=== PATIENT | female | born 1955 | race Caucasian/White ===

== ENCOUNTER 2019-04-01 09:40 | Day surgery (SDC) | payer BC ==
[~2019-04-01] VITALS: Ht 162.6 cm; Wt 63.0 kg
[~2019-04-01 09:40] MED LIST: Cholest Off450 MG PO; ERGO400; FISH OIL 1,0001 EAC1 PO; LISI5 PO; Loratadine10 MG PO; MOVE FREE JOIN1 EACH; Pepto-Bism525 MG/15 PO; Propranolol HCl80 MG PO
== END 2019-04-01 11:53 | disposition home or self-care (01) ==
LOC: ORSCSDS 09:40
PROVIDERS: Internal Medicine Gastroenterology
PROC: 0DJD8ZZ Inspection of Lower Intestinal Tract, Via Natural or Artificial Opening Endoscopic (ICD-10-PCS; principal; 2019-04-01 11:00)
DX: Z12.11 Encounter for screening for malignant neoplasm of colon (principal); K57.30 Diverticulosis of large intestine without perforation or abscess without bleeding; I10 Essential (primary) hypertension; Z79.899 Other long term (current) drug therapy
CPT/HCPCS: J1980; J2704; J7120

== ENCOUNTER 2019-08-17 19:06 | Emergency (ER) | payer BC ==
[~2019-08-17] VITALS: Ht 162.6 cm; Wt 63.5 kg
[2019-08-17 20:28] LABS: BASOPHILS ABSOLUTE AUTO 0.07 K/mm3 (0.00-0.23); BASOPHILS PERCENT AUTO 1 % (0-2); EOSINOPHILS ABSOLUTE AUTO 0.33 K/mm3 (0.00-0.68); EOSINOPHILS PERCENT AUTO 5 % (0-6); IMMATURE GRAN ABSOLUTE AUTO 0.02 K/mm3 (0.00-0.10); IMMATURE GRAN PERCENT AUTO 0 % (0-1); LYMPHOCYTES ABSOLUTE AUTO 1.95 K/mm3 (0.84-5.20); LYMPHOCYTES PERCENT AUTO 30 % (21-46); MONOCYTES ABSOLUTE AUTO 0.43 K/mm3 (0.16-1.47); MONOCYTES PERCENT AUTO 7 % (4-13); Mean Corpuscular HGB 30.1 pg (26.0-34.0); Mean Corpuscular HGB Conc 31.9 g/dL (31.5-36.5); Mean Corpuscular Volume 94 fL (80-100); Mean Platelet Volume 9.3 fL (9.1-12.4); NEUTROPHILS ABSOLUTE AUTO 3.82 K/mm3 (1.96-9.15); NEUTROPHILS PERCENT AUTO 58 % (41-73); Platelet Count 247 K/mm3 (150-400); RDW Coefficient Variation 12.6 % (11.7-14.2); RDW Standard Deviation 44.2 fL (35.1-46.3); Red Blood Cell Count 4.99 M/mm3 (3.80-5.20); White Blood Cell Count 6.62 K/mm3 (4.00-11.30)
[2019-08-17 20:54] LABS: Troponin I <0.015 ng/mL (0.000-0.040)
[2019-08-17 20:56] LABS: Alanine Aminotransfer (ALT/SGP 35 U/L (12-78); Albumin, Blood 3.9 g/dL (3.4-5.0); Albumin/Globulin Ratio 1.2 (0.8-1.8); Alk Phos 107 U/L (50-136); Anion Gap 2 mmol/L (6-16); Aspartate Aminotrans (AST/SGOT 28 U/L (12-37); Bilirubin, Total 0.3 mg/dL (0.1-1.0); Blood Urea Nitrogen 20 mg/dL (8-24); Bun/Creatinine Ratio 22.2 (12.0-20.0); CO2, Blood 28 mmol/L (21-32); Chloride, Blood 111 mmol/L (98-108); Globulin, Blood 3.2 g/dL (2.2-4.0); Glomerular Filtration Rate >60 (60-); Glucose, Blood 128 mg/dL (70-99); Potassium, Blood 3.9 mmol/L (3.5-5.5); Sodium, Blood 141 mmol/L (136-145); Total Protein, Blood 7.1 g/dL (6.4-8.2)
[2019-08-17] MEDS ORDERED: Prilosec Otc20 MG PO (23:41)
== END 2019-08-17 23:55 | disposition home or self-care (01) ==
LOC: ER 19:06
PROVIDERS: Physician Assistant
DX: K21.9 Gastro-esophageal reflux disease without esophagitis (principal); R07.89 Other chest pain; R68.84 Jaw pain; Z88.8 Allergy status to other drugs, medicaments and biological substances; Z79.899 Other long term (current) drug therapy; I10 Essential (primary) hypertension
CPT/HCPCS: 36415; 71046; 80053; 84484; 85025; 93005; 93010; 99285-25

== ENCOUNTER 2021-04-29 06:16 | Day surgery (SDC) | payer BC ==
[~2021-04-29] VITALS: Ht 162.6 cm; Wt 65.1 kg
[~2021-04-29 06:16] MED LIST changes: +Aspirin EC81 MG PO; +Crestor20 MG PO; +NITR.4SL SL; +Prilosec Otc20 MG PO; +Prinivil10 MG PO; +Voltaren100 GM
--- NOTE | 2021-04-29 07:31 | NUR ---
04/29/21 0731 NADIYA DANGELO 2 HUNG
--- NOTE | 2021-04-29 08:08 | NUR ---
04/29/21 0808 Clemencia Phan 0.15ML OF EPI 1MG/ML ADDED TO 30ML OF BUPIVICAINE 0.5% TO CREATE A LOCAL OF BUPIVICAINE 0.5% WITH EPI 1:200,000.
== END 2021-04-29 10:33 | disposition home or self-care (01) ==
LOC: ORSCSDS 06:16
PROVIDERS: Orthopaedic Surgery
PROC: 0LX80ZZ Transfer Left Hand Tendon, Open Approach (ICD-10-PCS; principal; 2021-04-29 07:30)
PROC: 0RQT0ZZ Repair Left Carpometacarpal Joint, Open Approach (ICD-10-PCS; principal; 2021-04-29 07:30)
DX: M18.12 Unilateral primary osteoarthritis of first carpometacarpal joint, left hand (principal); I10 Essential (primary) hypertension; K21.9 Gastro-esophageal reflux disease without esophagitis; Z79.899 Other long term (current) drug therapy; Z79.82 Long term (current) use of aspirin
CPT/HCPCS: J0171; J0690; J1100; J1885; J2405; J2704; J3010; J7120

== ENCOUNTER 2023-04-11 18:42 | Emergency (ER) | payer MEDICARE ==
[~2023-04-11] VITALS: Ht 162.6 cm; Wt 65.8 kg
[~2023-04-11 18:42] MED LIST changes: +METF500 PO
[2023-04-11 21:47] VITALS: BP 172/97
== END 2023-04-11 22:04 | disposition home or self-care (01) ==
LOC: ER 18:42
DX: I10 Essential (primary) hypertension (principal); Z88.8 Allergy status to other drugs, medicaments and biological substances; Z79.899 Other long term (current) drug therapy; Z79.84 Long term (current) use of oral hypoglycemic drugs; Z79.82 Long term (current) use of aspirin
CPT/HCPCS: 99283

== ENCOUNTER → 2023-05-12 | Outpatient (CLI) | payer BC | LOC: LAB SHORT 08:23 → PLD 08:23 | DX: D48.5 Neoplasm of uncertain behavior of skin (principal) | CPT/HCPCS: 88304 ==